=== PATIENT | female | born 1990 | race Caucasian/White ===

== ENCOUNTER 2022-02-24 09:25 | Outpatient (CLI) | payer BC, SELFPAY ==
[2022-02-24 10:26] LABS: Beta HCG Quantitative 69.46 mIU/ML
== END 2022-02-24 09:26 | disposition home or self-care (01) ==
PROVIDERS: PCP Internal Medicine; Visit Provider Obstetrics & Gynecology
DX: O20.0 Threatened abortion (principal); Z3A.00 Weeks of gestation of pregnancy not specified
CPT/HCPCS: 36415; 84702; 86850; 86900; 86901

== ENCOUNTER 2022-02-26 14:14 | Outpatient (CLI) | payer BC, SELFPAY ==
[2022-02-26 14:55] LABS: Beta HCG Quantitative 35.59 mIU/ML
== END 2022-02-26 14:15 | disposition home or self-care (01) ==
LOC: ANHLAB 14:17
PROVIDERS: PCP Internal Medicine; Visit Provider Obstetrics & Gynecology
DX: O20.0 Threatened abortion (principal); Z3A.00 Weeks of gestation of pregnancy not specified
CPT/HCPCS: 36415; 84702

== ENCOUNTER 2022-03-05 16:16 | Outpatient (CLI) | payer BC, SELFPAY ==
[2022-03-05 17:31] LABS: Beta HCG Quantitative 7.08 mIU/ML
== END 2022-03-05 16:17 | disposition home or self-care (01) ==
PROVIDERS: PCP Internal Medicine; Visit Provider Obstetrics & Gynecology
DX: O03.9 Complete or unspecified spontaneous abortion without complication (principal); Z3A.00 Weeks of gestation of pregnancy not specified
CPT/HCPCS: 36415; 84702

== ENCOUNTER 2022-03-14 15:13 | Outpatient (CLI) | payer BC, SELFPAY ==
[2022-03-14 16:28] LABS: Beta HCG Quantitative < 2.39 mIU/ML
== END 2022-03-14 15:14 | disposition home or self-care (01) ==
LOC: ANHLAB 15:15
PROVIDERS: PCP Internal Medicine; Visit Provider Obstetrics & Gynecology
DX: O02.1 Missed abortion (principal); Z3A.00 Weeks of gestation of pregnancy not specified
CPT/HCPCS: 36415; 84702